=== PATIENT | female | born 1985 | race African-American/Black ===

== ENCOUNTER 2018-01-18 17:57 | Emergency (ER) | payer BC ==
[2018-01-18 18:32] LABS: Urine Blood TRACE (NEG); Urine Glucose NEGATIVE (NEG); Urine Protein NEGATIVE (NEG)
[2018-01-18 18:47] LABS: Bicarbonate 25 mEq/L (21-31); Glucose Level 88 mg/dL (65-120); Lipase 23 U/L (22-51); Potassium 3.3 mEq/L (3.6-5.0); Sodium Level 135 mEq/L (135-145)
[2018-01-18 18:48] LABS: Absolute Lymphocytes (CBC) 1.3 K/uL (0.7-4.9); Absolute Monocytes 1.4 K/uL (0.1-1.3); Absolute Neutrophil 7.5 K/uL (1.8-8.0); Basophils % 0.2 % (0-1.3); Eosinophils % 2.3 % (0-4.4); Hematocrit 34.8 % (36.0-45.0); Lymphocytes % 12.5 % (15.3-44.8); MCH 29.7 pg (27.0-35.0); MCV 89.8 fL (80-100); MPV 12.4 fL (7.6-11.3); Monocytes % 13.2 % (3.3-12.3); RBC Red Blood Cell Count 3.87 M/uL (3.86-4.86)
[2018-01-18 18:54] LABS: ALT/SGPT 170 IU/L (10-60); AST/SGOT 58 IU/L (10-42); Albumin 3.8 g/dL (3.2-5.5); Alkaline Phosphatase 69 IU/L (42-121); BUN Blood Urea Nitrogen 5 mg/dL (6-20); Bilirubin Direct < 0.1 mg/dL (0-0.2); Bilirubin Total 0.6 mg/dL (0.3-1.2); Protein, Total 7.9 g/dL (6.0-8.3)
[2018-01-18 19:26] LABS: Urine Amorphous Sediment 1+ /HPF (NONE SEEN); Urine Bacteria <20 /HPF (<20); Urine Culture Reflex Order NOT NEEDED; Urine Mucus 1+ /HPF (NONE SEEN); Urine RBC <5 /HPF (NONE SEEN)
--- NOTE | 2018-01-18 19:53 | RAD REPORT ---
EXAM DESCRIPTION: US - Abdomen Exam Limited - 01/18/2018 7:33 pm CLINICAL HISTORY: Abdominal pain. COMPARISON: None. FINDINGS: The gallbladder wall is not thickened. A gallstone is not seen. The biliary tree is normal caliber. IMPRESSION: Unremarkable gallbladder ultrasound.
--- NOTE | 2018-01-18 20:23 | EDPHYS ---
Physician Documentation [facility] Name: Celia Sorenson Age: 32 yrs Sex: Female : 1985 Arrival Date: 01/18/2018 Time: 18:01 Bed 27 Private MD: ED Physician Elvis Lynch HPI: 01/18 20:14 This 32 yrs old Black Female presents to ER via Ambulatory with complaints of Abdominal snw Pain, 18 wks . 20:19 The patient presents with abdominal pain suprapubic. Onset: The symptoms/episode snw began/occurred suddenly, today. The symptoms do not radiate. Associated signs and symptoms: Pertinent positives: diarrhea. The symptoms are described as crampy. Severity of pain: At its worst the pain was moderate. It is unknown whether or not the patient has had similar symptoms in the past. sees OB/ no complications. 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 - Social history:: Smoking status: Patient/guardian denies using tobacco. - Ebola Screening: : Patient denies exposure to infectious person Patient denies travel to an Ebola-affected area in the 21 days before illness onset. ROS: 18:19 Constitutional: Negative for fever, chills, and weight loss, Eyes: Negative for injury, snw pain, redness, and discharge, ENT: Negative for injury, pain, and discharge, Neck: Negative for injury, pain, and swelling, Cardiovascular: Negative for chest pain, palpitations, and edema, Respiratory: Negative for shortness of breath, cough, wheezing, and pleuritic chest pain, Abdomen/GI: Negative for nausea, vomiting, and constipation, + abdominal pain and diarrhea Back: Negative for injury and pain, : Negative for injury, bleeding, discharge, and swelling, MS/Extremity: Negative for injury and deformity, Skin: Negative for injury, rash, and discoloration, Neuro: Negative for headache, weakness, numbness, tingling, and seizure. 18:19 Cardiovascular: Positive for Exam: 18:17 Head/Face: Normocephalic, atraumatic. Eyes: Pupils equal round and reactive to light, snw extra-ocular motions intact. Lids and lashes normal. Conjunctiva and sclera are non-icteric and not injected. Cornea within normal limits. Periorbital areas with no swelling, redness, or edema. ENT: Nares patent. No nasal discharge, no septal abnormalities noted. Tympanic membranes are normal and external auditory canals are clear. Oropharynx with no redness, swelling, or masses, exudates, or evidence of obstruction, uvula midline. Mucous membranes moist. Neck: Trachea midline, no thyromegaly or masses palpated, and no cervical lymphadenopathy. Supple, full range of motion without nuchal rigidity, or vertebral point tenderness. No Meningismus. Chest/axilla: Normal chest wall appearance and motion. Nontender with no deformity. No lesions are appreciated. Respiratory: Lungs have equal breath sounds bilaterally, clear to auscultation and percussion. No rales, rhonchi or wheezes noted. No increased work of breathing, no retractions or nasal flaring. 18:17 Back: No spinal tenderness. No costovertebral tenderness. Full range of motion. Skin: Warm, dry with normal turgor. Normal color with no rashes, no lesions, and no evidence of cellulitis. MS/ Extremity: Pulses equal, no cyanosis. Neurovascular intact. Full, normal range of motion. Neuro: Awake and alert, GCS 15, oriented to person, place, time, and situation. Cranial nerves II-XII grossly intact. Motor strength 5/5 in all extremities. Sensory grossly intact. Cerebellar exam normal. Normal gait. Psych: Awake, alert, with orientation to person, place and time. Behavior, mood, and affect are within normal limits. 18:17 Constitutional: The patient appears alert, anxious, restless, uncomfortable. 18:17 Cardiovascular: Rate: tachycardic, Rhythm: regular, Pulses: no pulse deficits are appreciated, Heart sounds: normal. 18:17 Abdomen/GI: Inspection: gravid appearance, is noted, Bowel sounds: normal, Palpation: mild abdominal tenderness, in the suprapubic area. Vital Signs: 18:06 BP 128 / 71; Pulse 105; Resp 17; Temp 96.9(TE); Pulse Ox 99% on R/A; Weight 75.75 kg tw2 (R); Height 5 ft. 7 in. (170.18 cm); Pain 6/10; 20:29 BP 128 / 77; Pulse 87; Resp 18; Pulse Ox 100% on R/A; mb3 18:06 Body Mass Index 26.16 (75.75 kg, 170.18 cm) tw2 MDM: 18:10 Patient medically screened. snw 20:17 Data reviewed: vital signs, nurses notes. Data interpreted: Pulse oximetry: on room air snw is 99 %. Interpretation: normal. Counseling: I had a detailed discussion with the patient and/or guardian regarding: the historical points, exam findings, and any diagnostic results supporting the discharge/admit diagnosis, lab results, radiology results, the need for outpatient follow up, for definitive care, to return to the emergency department if symptoms worsen or persist or if there are any questions or concerns that arise at home. 01/18 18:10 Order name: Basic Metabolic Panel; Complete Time: 19:02 snw 01/18 18:10 Order name: CBC with Diff; Complete Time: 18:52 snw 01/18 18:10 Order name: Hepatic Function; Complete Time: 19:02 snw 01/18 18:10 Order name: Lipase; Complete Time: 19:02 snw 01/18 18:10 Order name: Urine Microscopic Only; Complete Time: 19:30 snw 01/18 18:25 Order name: Urine Dipstick--Ancillary (enter results); Complete Time: 18:34 bd 01/18 18:10 Order name: IV Saline Lock; Complete Time: 18:31 snw 01/18 18:10 Order name: Labs collected and sent; Complete Time: 18:31 snw 01/18 18:10 Order name: Urine Dipstick-Ancillary (obtain specimen); Complete Time: 18:31 snw 01/18 18:10 Order name: Heart Tones; Complete Time: 18:31 snw 01/18 18:25 Order name: Urine --Ancillary (enter results); Complete Time: 18:34 bd 01/18 19:04 Order name: Abdomen Limited US; Complete Time: 20:13 snw 01/18 20:14 Order name: Recheck Vital Signs snw Administered Medications: No medications were administered Disposition: 01/19 07:07 Co-signature as Attending Physician, Elvis Lynch MD. rn Disposition: 01/18/18 20:22 Discharged to Home. Impression: Diarrhea, unspecified, state. - Condition is Stable. - Discharge Instructions: Food Choices to Help Relieve Diarrhea, Adult, Diarrhea, Rehydration, Adult. - Work release form, Medication Reconciliation Form, Thank You Letter, Antibiotic Education, Prescription Opioid Use form. - Follow up: Private Physician; When: 2 - 3 days; Reason: Recheck today's complaints, Continuance of care, Re-evaluation by your physician. Follow up: Emergency Department; When: As needed; Reason: Worsening of condition. - Notes: Please see Medical Record Librarians Teacher this week. Signatures: Dispatcher [employer] EDMS Flor Barker, KENNEL OPERATOR-C KENNEL OPERATOR-Csnw Elvis Lynch MD MD rn Pankaj, Bere, RN RN tw2 Mundo Elena RN RN mb3 Corrections: (The following items were deleted from the chart) 01/18 18:21 18:19 Constitutional: Negative for fever, chills, and weight loss, Eyes: Negative for snw injury, pain, redness, and discharge, ENT: Negative for injury, pain, and discharge, Neck: Negative for injury, pain, and swelling, Respiratory: Negative for shortness of breath, cough, wheezing, and pleuritic chest pain, Abdomen/GI: Negative for abdominal pain, nausea, vomiting, diarrhea, and constipation, Back: Negative for injury and pain, : Negative for injury, bleeding, discharge, and swelling, MS/Extremity: Negative for injury and deformity, Skin: Negative for injury, rash, and discoloration, Neuro: Negative for headache, weakness, numbness, tingling, and seizure, snw 20:21 20:14 The patient presents with abdominal pain that is diffuse, snw snw 20:21 20:14 Onset: The symptoms/episode began/occurred at an unknown time, snw snw 20:21 20:14 Associated signs and symptoms: Pertinent positives: chronic constipation, no snw bowel training program maintenance, + quadriplegia, snw 20:21 20:14 The symptoms are described as vague, snw snw 20:21 20:14 Severity of pain: At its worst the pain was moderate snw snw 20:21 20:14 The patient has experienced similar episodes in the past, chronically, neda red 20:21 20:14 pt is vague about answering this question but says his pcp is neda Perez 20:48 20:22 01/18/2018 20:22 Discharged to Home. Impression: Diarrhea, unspecified; mb3 state. Condition is Stable. Forms are Medication Reconciliation Form, Thank You Letter, Antibiotic Education, Prescription Opioid Use. Follow up: Private Physician; When: 2 - 3 days; Reason: Recheck today's complaints, Continuance of care, Re-evaluation by your physician. Follow up: Emergency Department; When: As needed; Reason: Worsening of condition. neda
--- NOTE | 2018-01-18 20:23 | ER ---
Nurse's Notes [facility] Name: Celia Sorenson Age: 32 yrs Sex: Female : 1985 Arrival Date: 01/18/2018 Time: 18:01 Bed 27 Private MD: Diagnosis: Diarrhea, unspecified; state Presentation: 01/18 18:05 Presenting complaint: Patient states: i am having bad abdominal pain started yesterday tw2 and having diarrhea, 18 weeks . Transition of care: patient was not received from another setting of care. Onset of symptoms was January 18, 2018. Risk Assessment: Do you want to hurt yourself or someone else? Patient reports no desire to harm self or others. Initial Sepsis Screen: Does the patient meet any 2 criteria? No. Patient's initial sepsis screen is negative. Does the patient have a suspected source of infection? No. Patient's initial sepsis screen is negative. Care prior to arrival: None. 18:05 Method Of Arrival: Ambulatory tw2 18:05 Acuity: BERENICE 3 tw2 Triage Assessment: 18:06 General: Appears uncomfortable, Behavior is appropriate for age. Pain: Complains of tw2 pain in abdomen. GI: Abdomen is round Bowel sounds present X 4 quads. 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 - Social history:: Smoking status: Patient/guardian denies using tobacco. - Ebola Screening: : Patient denies exposure to infectious person Patient denies travel to an Ebola-affected area in the 21 days before illness onset. Screenin:33 Abuse screen: Denies threats or abuse. Nutritional screening: No deficits noted. mb3 Tuberculosis screening: No symptoms or risk factors identified. Fall Risk None identified. Assessment: 18:35 General: Appears ill, well groomed, Behavior is calm, cooperative, appropriate for age. mb3 Pain: Complains of pain in right lower quadrant and left lower quadrant Pain currently is 7 out of 10 on a pain scale. Neuro: No deficits noted. Level of Consciousness is awake, alert, obeys commands, Oriented to person, place, time, situation, Appropriate for age. Cardiovascular: No deficits noted. Respiratory: No deficits noted. Airway is patent Respiratory effort is even, unlabored, Respiratory pattern is regular, symmetrical. GI: Abdomen is round Bowel sounds present X 4 quads. hypoactive in right upper quadrant, left upper quadrant, right lower quadrant and left lower quadrant Abd is soft Abdomen is tender to palpation in right lower quadrant and left lower quadrant Reports lower abdominal pain. : No signs and/or symptoms were reported regarding the genitourinary system. Derm: No deficits noted. No signs and/or symptoms reported regarding the dermatologic system. Musculoskeletal: No deficits noted. No signs and/or symptoms reported regarding the musculoskeletal system. Vital Signs: 18:06 BP 128 / 71; Pulse 105; Resp 17; Temp 96.9(TE); Pulse Ox 99% on R/A; Weight 75.75 kg tw2 (R); Height 5 ft. 7 in. (170.18 cm); Pain 6/10; 20:29 BP 128 / 77; Pulse 87; Resp 18; Pulse Ox 100% on R/A; mb3 18:06 Body Mass Index 26.16 (75.75 kg, 170.18 cm) tw2 Vitals: 18:33 Heart Tones 150. mb3 ED Course: 18:01 Patient arrived in ED. mr 18:06 Triage completed. tw2 18:06 Arm band placed on. tw2 18:09 Flor Barker FNP-C is [facility]. snw 18:09 Elvis Lynch MD is Attending Physician. snw 18:10 Mundo Elena, NATALIA is Primary Nurse. mb3 18:31 Inserted saline lock: 20 gauge in right antecubital area, using aseptic technique. mb3 Blood collected. 18:37 Patient has correct armband on for positive identification. Bed in low position. Call mb3 light in reach. Side rails up X 1. 19:33 Abdomen Limited US In Process Unspecified. EDMS 20:47 No provider procedures requiring assistance completed. IV discontinued, intact, mb3 bleeding controlled, No redness/swelling at site. Pressure dressing applied. Administered Medications: No medications were administered Outcome: 20:22 Discharge ordered by . snw 20:47 Discharged to home ambulatory. mb3 20:47 Condition: stable 20:47 Discharge instructions given to patient, Instructed on discharge instructions, follow up and referral plans. Demonstrated understanding of instructions, follow-up care. 20:48 Patient left the ED. mb3 Signatures: Dispatcher [employer] EDMS Flor Barker, DECISION SUPPORT MANAGER-C DECISION SUPPORT MANAGER-Csnw Miya Calloway mr Bere Lira, RN RN tw2 Mundo Elena RN RN mb3
== END 2018-01-18 20:48 | disposition home or self-care (01) ==
LOC: ER 17:57
DX: R19.7 Diarrhea, unspecified (principal); Z3A.18 18 weeks gestation of pregnancy
CPT/HCPCS: 36415; 76705; 80048; 80076; 81003; 81015; 81025; 83690; 85025; 99284